=== PATIENT | female | born 1975 | race Caucasian/White ===

== ENCOUNTER → 2020-03-30 09:28 | Outpatient (BNVA) | payer OTHER, SELFPAY | PROVIDERS: PCP Internal Medicine; Visit Provider Dietitian, Registered | DX: Z76.89 Persons encountering health services in other specified circumstances (principal) ==

== ENCOUNTER → 2020-05-11 09:08 | Outpatient (BNVA) | payer OTHER, SELFPAY | PROVIDERS: PCP Internal Medicine; Visit Provider Dietitian, Registered | DX: Z76.89 Persons encountering health services in other specified circumstances (principal) ==

== ENCOUNTER → 2020-07-12 10:29 | Outpatient (BNVA) | payer OTHER, SELFPAY | PROVIDERS: PCP Internal Medicine; Visit Provider Dietitian, Registered ==

== ENCOUNTER → 2020-09-09 10:01 | Outpatient (BNVA) | payer OTHER, SELFPAY | PROVIDERS: PCP Internal Medicine; Visit Provider Dietitian, Registered | DX: E66.9 Obesity, unspecified (principal) | CPT/HCPCS: 97803 ==

== ENCOUNTER → 2021-04-07 10:30 | Outpatient (BNVA) | payer OTHER, SELFPAY | PROVIDERS: PCP Internal Medicine; Visit Provider Dietitian, Registered | DX: E66.9 Obesity, unspecified (principal); Z68.41 Body mass index [BMI] 40.0-44.9, adult | CPT/HCPCS: 97803 ==

== ENCOUNTER → 2021-07-13 12:30 | Outpatient (BNVA) | payer OTHER, SELFPAY | PROVIDERS: PCP Internal Medicine; Visit Provider Dietitian, Registered | DX: E66.9 Obesity, unspecified (principal); Z68.41 Body mass index [BMI] 40.0-44.9, adult; Z71.3 Dietary counseling and surveillance | CPT/HCPCS: 97803 ==

== ENCOUNTER → 2021-11-28 09:29 | Outpatient (BNVA) | payer OTHER, SELFPAY | PROVIDERS: PCP Internal Medicine; Visit Provider Dietitian, Registered | DX: E66.9 Obesity, unspecified (principal); Z68.41 Body mass index [BMI] 40.0-44.9, adult; Z71.3 Dietary counseling and surveillance | CPT/HCPCS: 97803 ==

== ENCOUNTER → 2022-02-28 09:39 | Outpatient (BNVA) | payer OTHER, SELFPAY | PROVIDERS: PCP Internal Medicine; Visit Provider Dietitian, Registered | DX: E66.9 Obesity, unspecified (principal); Z68.41 Body mass index [BMI] 40.0-44.9, adult; Z71.3 Dietary counseling and surveillance | CPT/HCPCS: 97803 ==

== ENCOUNTER → 2022-09-20 12:33 | Outpatient (BNVA) | payer OTHER, SELFPAY | PROVIDERS: PCP Internal Medicine; Visit Provider Dietitian, Registered | DX: E66.9 Obesity, unspecified (principal); Z68.41 Body mass index [BMI] 40.0-44.9, adult | CPT/HCPCS: 97803 ==

== ENCOUNTER 2023-01-08 11:22 | Outpatient (AMB) | payer OTHER, SELFPAY ==
--- NOTE | 2023-01-08 11:27 | A.OFFVIS_ITS ---
Intake VS Expanded 01/08/23 11:28 Height 5 ft 7 in Weight 272 lb 11.389 oz BMI 42.7 Intake Visit Reasons: obesity, wt check Allergies aspirin Allergy (Unknown, Uncoded 03/11/18 00:00) eggs Allergy (Unknown, Uncoded 03/11/18 00:00) food colorings red, 5, 10 Allergy (Unknown, Uncoded 03/11/18 00:00) latex Allergy (Unknown, Uncoded 03/11/18 00:00) pennicilin Allergy (Unknown, Uncoded 03/11/18 00:00) pineapple Allergy (Unknown, Uncoded 03/11/18 00:00) HPI Nutrition Presentation Details Pt presents for MNT for obesity Pt reports challenges with weight loss related to family gatherings/activities Pt reports physical activity:non additional to daily life activities (r/t pain from previous injuries)- followed by Most Recent Diabetes Results: No Data to Display Assessment & Plan Assessment & Plan (1) Obesity: Comment: BMI at 42.7 on (12/2022) 42.9 (09/20/22), 42.6 on 11/28/21 , 41 on 07/13/21 was at 42.3 in 03/2021 Code(s): E66.9 - Obesity, unspecified Plan: Educate Pt on 2000 christopher meal plan ? Used wt : 123 kg Est kcal as per MSJ: 2296-250 = 2046 (40% carb, 30% fat/prot) Est fluid needs: 3076 ml/d (25 ml/kg bw) Rec fiber: increase to 8-10 g per day and gradually increase to 25 g/d as tolerated Rec Na: < 2000 mg /d Educate patient on: (R= Reviewed, V = verbalizes understanding N/R= Needs review N/A= not applicable) * Food sources of carbohydrates and serving adequate serving sizes : V * Difference between complex carbohydrates and simple carbohydrates, role of fiber: V * Differences between fats (MUFA/PUFA/saturated fats, trans fats) and food sources of various fats: V * Food sources of sodium and salt and healthy modifications for heart health and kidney health: V * Vitamins and minerals: V * How to interpret food labels: V * Healthy Plate method concept: V * Physical activity: benefits and precaution: V Patient Instructions: Continue working on reducing fat intake (baking, broiling, steaming), reducing on pastries -keep food record- utilize food log winnie Coding Level of Care Code Nutr Indiv Subseq (09989) Diagnoses Obesity E66.9
[2023-01-08 11:28] VITALS: BMI 42.7
== END 2023-01-08 12:01 | disposition home or self-care (01) ==
PROVIDERS: PCP Internal Medicine; Visit Provider Dietitian, Registered
DX: E66.9 Obesity, unspecified (principal)

== ENCOUNTER → 2023-01-08 11:22 | Outpatient (BNVA) | payer OTHER, SELFPAY | PROVIDERS: Visit Provider Dietitian, Registered | DX: E66.9 Obesity, unspecified (principal); Z68.41 Body mass index [BMI] 40.0-44.9, adult; Z71.3 Dietary counseling and surveillance | CPT/HCPCS: 97803 ==

== ENCOUNTER 2023-07-16 11:22 | Outpatient (AMB) | payer OTHER, SELFPAY ==
--- NOTE | 2023-07-16 11:28 | A.OFFVIS_ITS ---
Intake VS Expanded 07/16/23 11:29 Height 5 ft 7 in Weight 267 lb 3.204 oz BMI 41.8 Intake Visit Reasons: Obesity/CONFIRMED Allergies aspirin Allergy (Unknown, Uncoded 03/11/18 00:00) eggs Allergy (Unknown, Uncoded 03/11/18 00:00) food colorings red, 5, 10 Allergy (Unknown, Uncoded 03/11/18 00:00) latex Allergy (Unknown, Uncoded 03/11/18 00:00) pennicilin Allergy (Unknown, Uncoded 03/11/18 00:00) pineapple Allergy (Unknown, Uncoded 03/11/18 00:00) HPI Nutrition Presentation Details Pt presents for MNT f /u for obesity Pt reports working on reduction of foods that may be related to kidney stones fluids/d 64 oz/day fruits: 2-3 serving/d dairy - 2serving/d ve-5 serving/d protein: poultry, beef, fish ,eggs, legumes starches: choosing whole grains fried foods: 1-2 x/wk desserts 1-2 x/wk Most Recent Diabetes Results: No Data to Display Assessment & Plan Assessment & Plan (1) Obesity: Comment: BMI 41.8 (06/2023), BMI at 42.7 on (12/2022) 42.9 (09/20/22), 42.6 on 11/28/21 , 41 on 07/13/21 was at 42.3 in 03/2021 Code(s): E66.9 - Obesity, unspecified Plan: Educate Pt on 2000 christopher meal plan ? Used wt : 123 kg (03/2023) 121 kg (06/2023) Est kcal as per MSJ: 2296-250 = 2045 (40% carb, 30% fat/prot) Est fluid needs: 3076 ml/d (25 ml/kg bw) Rec fiber: increase to 8-10 g per day and gradually increase to 25 g/d as tolerated Rec Na: < 2000 mg /d Educate patient on: (R= Reviewed, V = verbalizes understanding N/R= Needs review N/A= not applicable) * Food sources of carbohydrates and serving adequate serving sizes : V * Difference between complex carbohydrates and simple carbohydrates, role of fiber: V * Differences between fats (MUFA/PUFA/saturated fats, trans fats) and food sources of various fats: V * Food sources of sodium and salt and healthy modifications for heart health and kidney health: V * Vitamins and minerals: V * How to interpret food labels: V * Healthy Plate method concept: V * Physical activity: benefits and precaution: V Patient Instructions: Continue working on reduction, 500 calories less from empty calorie foods Keep hydrated by having water with lemon, citrus flavors goal > 64 oz of low sugar fluids/day Be cautious of high sodium content of foods/seasonings, aim at less than 2000 mg /d Coding Level of Care Code Nutr Indiv Subseq (95583) Diagnoses Obesity E66.9 Time Spent (min) 30
[2023-07-16 11:29] VITALS: BMI 41.8
== END 2023-07-16 12:06 | disposition home or self-care (01) ==
PROVIDERS: PCP Internal Medicine; Visit Provider Dietitian, Registered
DX: E66.9 Obesity, unspecified (principal)

== ENCOUNTER → 2023-07-16 11:22 | Outpatient (BNVA) | payer OTHER, SELFPAY | PROVIDERS: PCP Internal Medicine; Visit Provider Dietitian, Registered | DX: E66.9 Obesity, unspecified (principal); Z68.41 Body mass index [BMI] 40.0-44.9, adult | CPT/HCPCS: 97803 ==

== ENCOUNTER 2024-02-06 12:20 | Outpatient (AMB) | payer OTHER, SELFPAY ==
[2024-02-06 12:31] VITALS: BMI 43.3
--- NOTE | 2024-02-06 12:31 | A.OFFVIS_ITS ---
VS Expanded 02/06/24 12:31 Height 5 ft 7 in Weight 276 lb 3.827 oz BMI 43.3 Intake Visit Reasons: Obesity/CONFIRMED Allergies aspirin Allergy (Unknown, Uncoded 03/11/18 00:00) eggs Allergy (Unknown, Uncoded 03/11/18 00:00) food colorings red, 5, 10 Allergy (Unknown, Uncoded 03/11/18 00:00) latex Allergy (Unknown, Uncoded 03/11/18 00:00) pennicilin Allergy (Unknown, Uncoded 03/11/18 00:00) pineapple Allergy (Unknown, Uncoded 03/11/18 00:00) Nutrition Presentation Details: Pt presents for MNT f/u for obesity Pt reports dietary indiscretion related to vacation + choosing foods known to cause allergic reaction leading to increase inflammation. Pt verbalizes importance of resuming meal planning and reducing calories for weight loss. Pt expresses motivation to resume diet modificaitons. Reports starting to engage in physical activity , walking 1 hour 5 days a week BS Monitoring Most Recent Diabetes Results: No Data to Display Assessment & Plan Assessment & Plan (1) Obesity: Comment: BMI 41.8 (06/2023), today 02/17 at 43.3 Code(s): E66.9 - Obesity, unspecified Category: Medical Plan: Educate Pt on 2200 christopher meal plan ? Used wt : 123 kg (03/2023) 121 kg (06/2023), 125 kg ( 02/17) Est kcal as per MSJ: 2296 (40% carb, 30% fat/prot) Est fluid needs: 3076 ml/d (25 ml/kg bw) Rec fiber: increase to 8-10 g per day and gradually increase to 25 g/d as tolerated Rec Na: < 2000 mg /d Educate patient on: (R= Reviewed, V = verbalizes understanding N/R= Needs review N/A= not applicable) * Food sources of carbohydrates and serving adequate serving sizes : V * Difference between complex carbohydrates and simple carbohydrates, role of fiber: V * Differences between fats (MUFA/PUFA/saturated fats, trans fats) and food sources of various fats: V * Food sources of sodium and salt and healthy modifications for heart health and kidney health: V * Vitamins and minerals: V * How to interpret food labels: V * Healthy Plate method concept: V * Physical activity: benefits and precaution: V Patient Instructions: Resume working on meal planning, have 3 meals/day and 2 snack, following healthy plate method , use portioned plates , choose baked, broil, working n reducing on portion sizes and also amount of fats in the meals/snacks Choose water, no sugar added tea/beverages/infused water Coding Level of Care Code Nutr Indiv Subseq ([id number]) Diagnoses Obesity E66.9 Time Spent (min) 30
== END 2024-02-06 13:03 | disposition home or self-care (01) ==
PROVIDERS: PCP Internal Medicine; Visit Provider Dietitian, Registered
DX: E66.9 Obesity, unspecified (principal)

== ENCOUNTER → 2024-02-06 12:20 | Outpatient (BNVA) | payer OTHER, SELFPAY | PROVIDERS: PCP Internal Medicine; Visit Provider Dietitian, Registered | DX: E66.9 Obesity, unspecified (principal); Z68.41 Body mass index [BMI] 40.0-44.9, adult; Z71.3 Dietary counseling and surveillance | CPT/HCPCS: 97803 ==

== ENCOUNTER 2024-05-07 10:50 | Outpatient (AMB) | payer OTHER, SELFPAY ==
[2024-05-07 11:05] VITALS: BMI 43.4
--- NOTE | 2024-05-07 11:05 | A.OFFVIS_ITS ---
VS Expanded 05/07/24 11:05 Height 5 ft 7 in Weight 277 lb 5.464 oz BMI 43.4 Intake Visit Reasons: Obesity/Confirmed Allergies aspirin Allergy (Unknown, Uncoded 03/11/18 00:00) eggs Allergy (Unknown, Uncoded 03/11/18 00:00) food colorings red, 5, 10 Allergy (Unknown, Uncoded 03/11/18 00:00) latex Allergy (Unknown, Uncoded 03/11/18 00:00) pennicilin Allergy (Unknown, Uncoded 03/11/18 00:00) pineapple Allergy (Unknown, Uncoded 03/11/18 00:00) Medication List - Last Reconciled 05/07/[address], LDN chlorthalidone 25 mg PO DAILY levothyroxine (Synthroid) 112 mcg PO DAILY losartan 100 mg PO DAILY Nutrition Presentation Details: Pt presents for f/u for obesity Working on increasing fiber rich foods an reducing carbs Pt with hashimosto disease , was recently on prednisone r/t to upper respiratory infection BS Monitoring Most Recent Diabetes Results: No Data to Display Assessment & Plan Assessment & Plan (1) Obesity: Comment: BMI 41.8 (06/2023), today 02/17 at 43.3, 05/19 43.4 Code(s): E66.9 - Obesity, unspecified Category: Medical Plan: Educate Pt on 2200 christopher meal plan ? Used wt : 123 kg (03/2023) 121 kg (06/2023), 125 kg ( 02/17), 05/19 Est kcal as per MSJ: 2296 (40% carb, 30% fat/prot) Est fluid needs: 3076 ml/d (25 ml/kg bw) Rec fiber: increase to 8-10 g per day and gradually increase to 25 g/d as tolerated Rec Na: < 2000 mg /d Educate patient on: (R= Reviewed, V = verbalizes understanding N/R= Needs review N/A= not applicable) * Food sources of carbohydrates and serving adequate serving sizes : V * Difference between complex carbohydrates and simple carbohydrates, role of fiber: V * Differences between fats (MUFA/PUFA/saturated fats, trans fats) and food sources of various fats: V * Food sources of sodium and salt and healthy modifications for heart health and kidney health: V * Vitamins and minerals: V * How to interpret food labels: V * Healthy Plate method concept: V * Physical activity: benefits and precaution: V Patient Instructions: Continue working on including fiber rich foods and polyphenols ( seeds/lentils/legumes) Coding Level of Care Code Nutr Indiv Subseq ([id number]) Diagnoses Obesity E66.9 Time Spent (min) 20
== END 2024-05-07 11:30 | disposition home or self-care (01) ==
PROVIDERS: PCP Internal Medicine; Visit Provider Dietitian, Registered
DX: E66.9 Obesity, unspecified (principal)

== ENCOUNTER → 2024-05-07 10:50 | Outpatient (BNVA) | payer OTHER, SELFPAY | PROVIDERS: PCP Internal Medicine; Visit Provider Dietitian, Registered | DX: E66.9 Obesity, unspecified (principal); Z68.41 Body mass index [BMI] 40.0-44.9, adult | CPT/HCPCS: 97803 ==

== ENCOUNTER 2024-09-17 08:57 | Outpatient (AMB) | payer OTHER, SELFPAY ==
[2024-09-17 09:14] VITALS: BMI 42.8
--- NOTE | 2024-09-17 09:14 | A.OFFVIS_ITS ---
VS Expanded 09/17/24 09:14 Height 5 ft 7 in Weight 273 lb 5.971 oz BMI 42.8 Intake Visit Reasons: Obesity Allergies aspirin Allergy (Unknown, Uncoded 03/11/18 00:00) eggs Allergy (Unknown, Uncoded 03/11/18 00:00) food colorings red, 5, 10 Allergy (Unknown, Uncoded 03/11/18 00:00) latex Allergy (Unknown, Uncoded 03/11/18 00:00) pennicilin Allergy (Unknown, Uncoded 03/11/18 00:00) pineapple Allergy (Unknown, Uncoded 03/11/18 00:00) Medication List - Last Reconciled 09/17/[address], LDN albuterol sulfate 90 mcg/actuation (Ventolin HFA) 2 puffs inhalation Q6H PRN chlorthalidone 25 mg PO DAILY levothyroxine (Synthroid) 112 mcg PO DAILY losartan 100 mg PO DAILY pantoprazole (Protonix) 20 mg PO DAILY Nutrition Presentation Details: Pt presents for MNT for obesity Pt reports working on diet modifications due to food sensitivities, reports sensitivity to gluten Working on reducing gluten containing foods Pt report challenges with meals d/t increased nausea and stomach pain , Pt reports having ongoing tests and reports having pending MRI tomorrow due to ongoing stomach pain , and question possible MALS food frequency fruits: 1-2/d dairy: 2/d fried foods -denies fluids: 36 oz/d BS Monitoring Most Recent Diabetes Results: No Data to Display [facility] Medical History (Updated 09/17/24 @ 09:[address], LDN) Gestational diabetes mellitus Assessment & Plan Assessment & Plan (1) Obesity: Comment: BMI 41.8 (06/2023), today 02/17 at 43.3, 05/19 43.4, 09/18 42.8 Code(s): E66.9 - Obesity, unspecified Category: Medical Plan: Educate Pt on 2200 christopher meal plan ? Used wt : 123 kg (03/2023) 121 kg (06/2023), 125 kg ( 02/17), 05/19, 09/18 Est kcal as per MSJ: 2296 (40% carb, 30% fat/prot) Est fluid needs: 3700 ml/d (30 ml/kg bw) Rec fiber: increase to 8-10 g per day and gradually increase to 25 g/d as tolerated Rec Na: < 2000 mg /d Educate patient on: (R= Reviewed, V = verbalizes understanding N/R= Needs review N/A= not applicable) * Food sources of carbohydrates and serving adequate serving sizes : V * Difference between complex carbohydrates and simple carbohydrates, role of fiber: V * Differences between fats (MUFA/PUFA/saturated fats, trans fats) and food sources of various fats: V * Food sources of sodium and salt and healthy modifications for heart health and kidney health: V * Vitamins and minerals: V * How to interpret food labels: V * Healthy Plate method concept: V * Physical activity: benefits and precaution: V Patient Instructions: Continue working on choosing low small portion , chew foods well prior to swallowing try lemon, willie/mint to relieve symptoms of nauseao Coding Level of Care Code Nutr Indiv Subseq (97008) Diagnoses Obesity E66.9 Time Spent (min) 20
--- OUTSIDE RECORDS SUMMARY | 2024-09-17 09:36 | XMS_ITS | Clinical Summary ---
Author Organization [facility] Address [address] [place] [phone] Phone Care Team Providers Care Apprentice Jockey Name Role Phone Troy Nicolas MD Primary Care Provider [phone] Allergies Active Allergy Reactions Criticality Noted Date Comments Aspirin Anaphylaxis High 07/01/2018 Egg 02/22/2022 Egg containing compound Ibuprofen Anaphylaxis High 07/01/2018 Iodine 01/26/2020 Latex 07/01/2018 Other Reaction(s): Rash/Dermatitis And skin loss on contact Other 02/09/2020 Dermabond skin glue- causes rash, skin irritation reaction anaphylactic shock Penicillin G Anaphylaxis High 07/01/2018 Pineapple 02/22/2022 Povidone-Iodine 02/22/2022 Other reaction(s): Rash Propantheline 02/22/2022 Sulfadiazine 02/22/2022 Other reaction(s): Hives Medications nystatin (MYCOSTATIN) 100,000 unit/gram powder Apply 1 gram to affected area three times per day as needed. 03/10/20 24 Active nystatin (MYCOSTATIN) cream Apply to affected area daily as needed. 03/10/20 24 025 Active pantoprazole (PROTONIX) 40 mg EC tablet TAKE 1 TABLET BY MOUTH TWICE DAILY 08/20/19 24 Active losartan (COZAAR) 25 mg tablet Take 25 mg by mouth daily. 01/25/20 22 Active EPINEPHrine (EpiPen 2-Javi) 0.3 mg/0.3 mL injection INJECT 1 PEN INTO MUSCLE NEEDED FOR ANAPHYLAXIS REACTION 01/24/20 22 Active diclofenac (VOLTAREN) 1 % topical gel apply 2 Gm Topically 4 times a day as needed for Moderate pain 01/24/20 22 Active albuterol HFA (PROAIR HFA ; PROVENTIL HFA ; VENTOLIN HFA) 90 mcg/actuation inhaler Inhale into the lungs. 10/16/19 20 Active chlorthalidone (HYGROTON) 25 mg tablet Take 25 mg by mouth daily. 05/17/20 21 Active levothyroxine (SYNTHROID, LEVOTHROID) 112 mcg tablet TAKE 1 TABLET BY MOUTH ONCE EVERY DAY 12/22/19 21 Active potassium chloride 20 mEq tablet extended release Take 1 Tablet by mouth daily. 08/22/19 24 025 Discontinued azithromycin (ZITHROMAX) 250 mg tablet Take by mouth. 07/27/19 21 025 Discontinued indapamide (LOZOL) 1.25 mg tablet TK 1 T PO QD 02/09/20 20 025 Discontinued levothyroxine sodium (SYNTHROID ORAL) Take by mouth. 025 Discontinued Active Problems Problem Noted Date Diagnosed Date Hypertension 09/08/2024 At high risk for breast cancer 09/08/2024 Intertrigo 02/22/2020 Macromastia 02/22/2020 Breast pain 01/26/2020 Fibroadenoma of breast, left 01/24/2020 Overview (05/07/2024): 9:00, areola. Biopsy on 02/03/20. Atrial fibrillation (CMS/HCC V24, CMS/HCC V28) 0 01/27/2019 Overview (05/07/2024): Occurred when w/2nd child-resolved after giving Hypothyroidism 01/27/2019 Old MD (myocardial infarction) 01/27/2019 Overview (05/07/2024): At age 15 and 31 (during ) Resolved Problems Problem Noted Date Diagnosed Date Resolved Date Neck pain 02/22/2020 09/08/2024 Encounters Date Type Department Care Team Description 09/08/2024 9:00 AM EDT Office Visit [facility] [address] [place] [phone] Preet Leyva MD At high risk for breast cancer (Primary Dx); Family history of breast cancer from Last 3 Months Surgical History Surgery Date Site/Laterality Comments HYSTERECTOMY 2016 PROCEDURE: HISTORICAL HYSTERECTOMY; COMMENT: for endometriosis; ovaries remian OTHER SURGICAL HISTORY 05/2014 PROCEDURE: HISTORY OTHER; COMMENT: urethroscopy w/stent placement for kidney stones Medical History Medical History Date Comments History of kidney stones DX:Hist ory of kidney stones Hypothyroidism 01/27/2019 DX:Hypothyroidis m Atrial fibrillation (CMS/HCC V24, CMS/HCC V28) 01/27/2019 DX:Atrial fibrillation (HCC) ; COMMENT: Occurred when w/2nd child-resolved after giving At risk for breast cancer 01/27/2019 DX:At risk for breast cancer; COMMENT: Lifetime risk 21.8%; 11/2017 BRCA testing negative; maternal aunt w/Breast Cancer at 34 Old MD (myocardial infarction) 01/27/2019 D X:Old MD (myocardial infarction); COMMENT: At age 15 and 31 (during ) Hypertension 09/08/2024 Family History Medical History Relation Name Comments Prostate cancer Maternal Grandfather Breast cancer Mother's Sister 1 Lymphoma Mother's Sister 2 maternal great aunt Relation Name Status Comments Maternal Grandfather at age 65 at [facility] Mother's Sister 1 Alive at age 34 Mother's Sister 2 maternal great aunt at age 65 Social History Tobacco Use Types Packs/Day Years Used Date Smoking Tobacco: Never Smokeless Tobacco: Never Comments Unknown Sex and Gender Information Value Date Recorded Sex Assigned at Not on file Legal Sex Female 1:25 AM EST Gender Identity Not on file Sexual Orientation Not on file Obstetrics History Last Filed Vital Signs Vital Sign Reading Time Taken Comments Blood Pressure 135/82 09/08/2024 8:43 AM EDT Pulse 73 09/08/2024 8:43 AM EDT Temperature 36.9 ??C (98.4 ??F) 09/08/2024 8:43 AM ED T Respiratory Rate - - Oxygen Saturation - - Inhaled Oxygen Concentration - - Weight 126 kg (278 lb) 09/08/2024 8:43 AM EDT Height 172.7 cm (5' 8 ) 02/22/2022 2:37 PM EDT Body Mass Index 42.27 02/22/2022 2:37 PM EDT Plan of Treatment Upcoming Encounters Date Type Department Care Team (Late st Contact Info) Description 03/11/2025 9:20 AM EDT Office Visit [facility] [place] [address] [place] [phone] Preet Leyav MD [address] [place] [address] Health Maintenance Due Date Last Done Comments Hepatitis B Vaccines (1 of 3 - 19+ 3-dose series) 1996 Pneumococcal Vaccine: Pediatrics (0 to 5 Years) and At-Risk Patients (6 to 64 Years) (1 of 2 - PCV) 1996 Cervical Cancer Screening: Pap Smear 1998 COVID-19 Vaccine (3 - Pfizer risk series) 03/22/2021 02/22/2021, 02/01/2021 Cholesterol Screening (Lipid Panel) 05/05/2022 Colorectal Cancer Screening: Colonoscopy 05/05/2022 Depression Screening 05/05/2022 HIV Screening 05/05/2022 Hepatitis C Screening 05/05/2022 Social Influencers of Health Screening 05/05/2022 DTaP,Tdap,and Td Vaccines (4 - Td or Tdap) 01/13/2024 01/12/2014, 07/16/2012, 04/26/2011 Influenza Vaccine (Season Ended) 2025 Hypertension/CHF/CAD Annual BMP Blood Test 03/27/2025 03/27/2024 Breast Cancer Screening 02/16/2026 02/17/20 24, 02/11/2023, 02/01/2022, Additional history exists Hepatitis A Vaccines Completed 09/14/2021, 03/17/20 21 HIB Vaccines Aged Out No longer eligi ble based on patient's age to complete this topic HPV Vaccines Aged Out No longer eligi ble based on patient's age to complete this topic IPV Vaccines Aged Out No longer eligi ble based on patient's age to complete this topic MMR Vaccines Aged Out No longer eligi ble based on patient's age to complete this topic Meningococcal ACWY Vaccine Aged Out N o longer eligible based on patient's age to complete this topic Meningococcal B Vaccine Aged Out No l onger eligible based on patient's age to complete this topic RSV Immunization Patients Under 20 months Aged Out No longer eligible based on patient's age to complete this topic Varicella Vaccines Aged Out No longer eligible based on patient's age to complete this topic Procedures Procedure Name Priority Date/Time Associated Diagnosis Comments [facility] SCREENING DIGITAL Routine 02/17/2024 8:39 AM EDT Encounter for screening mammogram for malignant neoplasm of breast from Last 3 Months or Most Recently Relevant to Health Maintenance Results * [facility] SCREENING DIGITAL (02/17/2024 8:39 AM EDT) Anatomical Region Laterality Modality Mammography 02/13/2024 1:19 PM EDT Narrative 02/17/2024 8:39 AM EDT [facility] Diagnostic Imaging Department [address] [place] [address] Patient: ??MONSELAINA Whitmore ?/Age/Sex: 1975 - 48 - F Unit#: ??[id number] ? Location/Status: ??SPDIMAM/REG CLI ? Mnemonic/Ordering Site: ??DIGSC/SPMAM Ordering Physician: ??PREET LEYVA MD [facility] Screening Digital - 02/15/24807 Report Status:Signed EXAM: [facility] Screening Digital EXAM DATE AND TIME: 02/15/2024 8:09 AM HISTORY: ??Screening. Excisional biopsy of the left breast in 2019 (fibroadenoma). Family history of breast carcinoma. COMPARISON: ??02/09/23, 02/01/22, 01/21/21, 01/18/20 TECHNIQUE: Bilateral digital breast tomosynthesis was performed in the CC and MLO projections. Computer aided detection with eMithilaHaatD Story of My Life 3D 3.1 was employed. TISSUE DENSITY: b. There are scattered areas of fibroglandular density. FINDINGS: No suspicious masses, grouped microcalcifications, or areas of architectural distortion are seen. Skin calcifications are again seen. The vascularity is unremarkable. IMPRESSION: Stable mammographic appearance of the breasts. ??No evidence of malignancy is seen. A negative mammogram in the presence of a clinically suspicious palpable abnormality does not preclude the possibility of malignancy or alter the indications for biopsy. BI-RADS: ??Category 2: Benign RECOMMENDATION(S): 1: Routine screening mammogram BILATERAL in 1 year. Mammogram performed at [facility] [place] [address] Dictating Physician: ??FATOU PORRAS MD Electronically Signed by: ??FATOU PORRAS MD Dic Date/Time: ??02/17/24 0838 Sign date/Time: ??02/17/24 0839 Procedure Note Fatou Porras MD - 03/11/2024 [facility] Diagnostic Imaging Department [address] [place] [address] Patient: JOSESHERRIELAINA /Age/Sex: 1975 - 48 - F Unit#: [id number] Location/Status: [facility]/REG CLI Mnemonic/Ordering Site: [facility] Ordering Physician: PREET LEYVA MD [facility] Screening Digital - 02/15/24 - 0808 Report Status:Signed EXAM: [facility] Screening Digital EXAM DATE AND TIME: 02/15/2024 8:09 AM HISTORY: Screening. Excisional biopsy of the left breast in 2019 (fibroadenoma). Family history of breast carcinoma. COMPARISON: 02/09/23, 02/01/22, 01/21/21, 01/18/20 TECHNIQUE: Bilateral digital breast tomosynthesis was performed in the CCand MLO projections. Computer aided detection with iPAYst 3D 3.1was employed. TISSUE DENSITY: b. There are scattered areas of fibroglandular density. FINDINGS: No suspicious masses, grouped microcalcifications, or areas ofarchitectural distortion are seen. Skin calcifications are again seen. The vascularityis unremarkable. IMPRESSION: Stable mammographic appearance of the breasts. No evidence of malignancyis seen. A negative mammogram in the presence of a clinically suspicious palpable abnormality does not preclude the possibility of malignancy or alter the indications for biopsy. BI-RADS: Category 2: Benign RECOMMENDATION(S): 1: Routine screening mammogram BILATERAL in 1 year. Mammogram performed at [place] [address] Dictating Physician: FATOU PORRAS MD Electronically Signed by: FATOU PORRAS MD Dic Date/Time: 02/17/24837 Sign date/Time: 02/17/24838 Preet Leyva MD IMG BI PROCEDURES Final Result from Last 3 Months or Most Recently Relevant to Health Maintenance Insurance MEDICA[place] Care Teams Apprentice Jockey Relationship Specialty Start Date End Date Troy Nicolas MD [address] [place] [address] PCP - General Internal Medicine 09/30/12
== END 2024-09-17 09:44 | disposition home or self-care (01) ==
LOC: HO.ENCR 08:58
PROVIDERS: PCP Internal Medicine; Visit Provider Dietitian, Registered
DX: E66.9 Obesity, unspecified (principal)

== ENCOUNTER → 2024-09-17 08:57 | Outpatient (BNVA) | payer OTHER, SELFPAY | PROVIDERS: PCP Internal Medicine; Visit Provider Dietitian, Registered | DX: E66.9 Obesity, unspecified (principal); Z68.41 Body mass index [BMI] 40.0-44.9, adult | CPT/HCPCS: 97803 ==

== ENCOUNTER 2025-03-18 09:29 | Outpatient (AMB) | payer OTHER, SELFPAY ==
--- NOTE | 2025-03-18 09:32 | A.OFFVIS_ITS ---
VS Expanded 03/18/25 09:33 03/23/25 21:53 Height 5 ft 7 in 5 ft 7 in Weight 276 lb 0.3 oz 276 lb BMI 43.2 43.2 Intake Visit Reasons: obesity Allergies aspirin Allergy (Unknown, Uncoded 03/11/18 00:00) eggs Allergy (Unknown, Uncoded 03/11/18 00:00) food colorings red, 5, 10 Allergy (Unknown, Uncoded 03/11/18 00:00) latex Allergy (Unknown, Uncoded 03/11/18 00:00) pennicilin Allergy (Unknown, Uncoded 03/11/18 00:00) pineapple Allergy (Unknown, Uncoded 03/11/18 00:00) Nutrition Presentation Details: Pt presents for MNT for obesity Pt reports she was advised by MD to follow gluten free diet (related to increased inflammation) Reports 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 Used wt : 123 kg (03/2023) 121 kg (06/2023), 125 kg ( 02/17), 05/19, 09/18, 03/20 Est kcal as per MSJ: 2296 (40% carb, 30% fat/prot) Est fluid needs: 3700 ml/d (30 ml/kg bw) Rec fiber: increase to 8-10 g per day and gradually increase to 25 g/d as tolerated Rec Na: < 2000 mg /d Educate patient on: (R= Reviewed, V = verbalizes understanding N/R= Needs review N/A= not applicable) * Food sources of carbohydrates and serving adequate serving sizes : V * Difference between complex carbohydrates and simple carbohydrates, role of fiber: V * Differences between fats (MUFA/PUFA/saturated fats, trans fats) and food sources of various fats: V * Food sources of sodium and salt and healthy modifications for heart health and kidney health: V * Vitamins and minerals: V * How to interpret food labels: V * Healthy Plate method concept: V * Physical activity: benefits and precaution: V Patient Instructions: -work on relaxation technique, - have one meal replacement a day -reduce added sugar (from beverages, desserts) Coding Level of Care Code Nutr Indiv Subseq (01923) Diagnoses Obesity E66.9 Time Spent (min) 20
[2025-03-18 09:33] VITALS: BMI 43.2
--- OUTSIDE RECORDS SUMMARY | 2025-03-18 10:39 | XMS_ITS | Clinical Summary ---
Author Organization [facility] Address [address] [place] [address] Phone Care Team Providers Care Sustainable Systems Analyst Name Role Phone Rubina Canada MD Primary Care Provider [phone] Allergies Active Allergy Reactions Criticality Noted Date [...] area three times per day as needed. 4 Active pantoprazole (PROTONIX) 40 mg EC tablet TAKE 1 TABLET BY MOUTH TWICE DAILY 4 Active losartan (COZAAR) 25 mg tablet Take 25 mg by mouth daily. 2 Active EPINEPHrine (EpiPen 2-Javi) 0.3 mg/0.3 mL injection INJECT 1 PEN INTO MUSCLE NEEDED FOR ANAPHYLAXIS REACTION 2 Active diclofenac (VOLTAREN) 1 % topical gel apply 2 Gm Topically 4 times a day as needed for Moderate pain 2 Active albuterol HFA (PROAIR HFA ; PROVENTIL HFA ; VENTOLIN HFA) 90 mcg/actuation inhaler Inhale into the lungs. 0 Active chlorthalidone (HYGROTON) 25 mg tablet Take 25 mg by mouth daily. 1 Active levothyroxine (SYNTHROID, LEVOTHROID) 112 mcg tablet TAKE 1 TABLET BY MOUTH ONCE EVERY DAY 1 Active nystatin (MYCOSTATIN) cream Apply to affected area daily as needed. 4 03/05/20 25 Active Problems Problem Noted Date Diagnosed Date [...] Encounters Date Type Department Care Team Description 02/23/2025 Results [facility] [address] [phone] Gillian Leyva MD 02/20/2025 7:48 AM EDT - 02/20/2025 11:59 PM EDT Hospital [facility] at [address] [phone] At high risk for breast cancer; Family history of breast cancer Discharge Disposition: Home or Self Care from Last 3 Months Surgical History Surgery Date Site/Laterality Comments HYSTERECTOMY 2016 PROCEDURE: HISTORICAL HYSTERECTOMY; COMMENT: for endometriosis; ovaries remian OTHER SURGICAL HISTORY 05/2014 PROCEDURE: HISTORY OTHER; COMMENT: urethroscopy w/stent placement for kidney stones STEREOTACTIC CORE BIOPSY Left Medical History Medical History Date Comments History [...] Comments Maternal Grandfather at age 65 at [facility]ase Mother's Sister 1 Alive at age 34 Mother's Sister 2 maternal great aunt at age 65 Social History Tobacco Use Types Packs/Day Years Used Date Smoking Tobacco: Never Smokeless Tobacco: Never Comments No Sex and Gender Information Value Date Recorded Sex Assigned at Not on file Legal Sex Female 1:25 AM EST Gender Identity Not on file Sexual Orientation Not on file Obstetrics History Para Term AB IAB SAB Ectopic Multiple Livin g Live Births 3 Last Filed Vital Signs Vital Sign Reading Time Taken Comments Blood Pressure 152/100 12/08/2024 3:48 PM EDT Pulse 92 12/08/2024 3:48 PM EDT Temperature 35.8 C (96.4 F) 12/08/2024 3:48 PM EDT Respiratory Rate - - Oxygen Saturation - - Inhaled Oxygen Concentration - - Weight 125 kg (275 lb) 02/20/2025 7:56 AM EDT Height 175.3 cm (5' 9 ) 02/20/2025 7:56 AM EDT Body Mass Index 40.61 02/20/2025 7:56 AM EDT Plan of Treatment Upcoming Encounters Date Type Department Care Team (Late Contact Info) Description 06/15/2025 9:40 AM EST Office Visit Breast [facility] [address] [place] [phone] Gillian Leyva MD [address] [place] [address] Health Maintenance Due Date Last Done Comments Colorectal Cancer Screening: Colonoscopy 1977 Hepatitis B Vaccines (1 of 3 - 19+ 3-dose series) 1996 Pneumococcal Vaccine: Pediatrics (0 to 5 Years) and At-Risk Patients (6 to 49 Years) (1 of 2 - PCV) 1996 Cervical Cancer Screening: Pap Smear 1998 COVID-19 Vaccine (3 - Pfizer risk series) 03/22/2021 02/22/2021, 02/01/2021 Cholesterol Screening (Lipid Panel) 05/05/2022 HIV Screening 05/05/2022 Hepatitis C Screening 05/05/2022 Social Influencers of Health Screening 05/05/2022 DTaP,Tdap,and Td Vaccines (4 - Td or Tdap) 01/13/2024 01/12/2014, 07/16/2012, 04/26/2011 Depression Screening 05/27/2024 Influenza Vaccine (#1) 2025 Hypertension/CHF/CAD Annual BMP Blood Test 03/27/2025 03/27/2024 Breast Cancer Screening 02/20/2027 02/21/20 25, 02/17/2024, 02/11/2023, Additional history exists RSV Immunization Adult Patients (1 - 1-dose 75+ series) 2052 Hepatitis A Vaccines Completed 09/14/2021, 03/17/20 21 [...] Procedure Name Priority Date/Time Associated Diagnosis Comments MG MAMMO DIGITAL SCREENING W KIMBERLY BILAT Routine 02/20/2025 8:11 AM EDT At high risk for breast cancer Family history of breast cancer from Last 3 Months Results * MG Mammo Digital Screening w Kimberly bilat (02/20/2025 8:11 AM EDT) Anatomical Region Laterality Modality Breast Bilateral Mammography 02/22/2025 7:40 AM EDT Impressions 02/22/2025 7:57 AM EDT No mammographic evidence of malignancy. No suspicious interval change. A negative mammogram in the presence of a clinically suspicious palpable abnormality does not preclude the possibility of malignancy or alter the indications for biopsy. ASSESSMENT: BI-RADS 2: BENIGN RECOMMENDATION(S): 1: Routine screening mammogram BILATERAL in 1 year. [facility] at [address], [address] -------- FINAL REPORT -------- Dictated By: Leo Solo Dictated Date: 02/22/2025 07:40 ET Assigned Physician: Leo Solo Reviewed and Electronically Signed By: Leo Solo Signed Date: 02/22/2025 07:57 ET Workstation ID: [id number] Transcribed By: Self Edit Transcribed Date: 02/22/2025 07:40 ET Narrative 02/22/2025 7:57 AM EDT EXAM: SCREENING MAMMOGRAPHY, BILATERAL HISTORY: SCREENING. The estimated lifetime risk of developing breast cancer is greater than 20%. Maternal aunt diagnosed with breast cancer age 34. Previous reports indicate excision left breast yielding fibroadenoma. COMPARISON: 12/14/24, 09/18/24, 02/15/24, 02/09/23, 02/01/22, 01/21/21 TECHNIQUE: Synthesized CC and MLO projections of each breast. Tomosynthesis of each breast in the CC and MLO projections. ADDITIONAL IMAGING: Craniocaudal view of the right breast exaggerated toward the axilla using Tomosynthesis. Computer-aided detection was employed with the My 1% AI 3-D. TISSUE DENSITY: There are scattered areas of fibroglandular density. (BI-RADS category B) FINDINGS: There is a scar marker present in the anterior central left breast on 01/21/21. RIGHT BREAST: No suspicious mass. No suspicious calcification. No distortion. No additional suspicious right breast findings LEFT BREAST: Findings consistent with prior excision. No additional suspicious left breast findings Procedure Note Leo Solo MD - 02/22/2025 EXAM: SCREENING MAMMOGRAPHY, BILATERAL HISTORY: SCREENING. The estimated lifetime risk of developing breastcancer is greater than 20%. Maternal aunt diagnosed with breast cancerage 34. Previous reports indicate excision left breast yielding fibroadenoma. COMPARISON: 12/14/24, 09/18/24, 02/15/24, 02/09/23, 02/01/22, 01/21/21 TECHNIQUE: Synthesized CC and MLO projections of each breast.Tomosynthesis of each breast in the CC and MLO projections. ADDITIONAL IMAGING: Craniocaudal view of the right breast exaggeratedtoward the axilla using Tomosynthesis. Computer-aided detection was employed with the My 1% AI 3-D. TISSUE DENSITY: There are scattered areas of fibroglandular density.(BI-RADS category B) FINDINGS: There is a scar marker present in the anterior central left breast on01/21/21. RIGHT BREAST: No suspicious mass. No suspicious calcification. No distortion. Noadditional suspicious right breast findings LEFT BREAST: Findings consistent with prior excision. No additional suspicious leftbreast findings IMPRESSION: No mammographic evidence of malignancy. No suspicious interval change. A negative mammogram in the presence of a clinically suspicious palpableabnormality does not preclude the possibility of malignancy or alter theindications for biopsy. ASSESSMENT: BI-RADS 2: BENIGN RECOMMENDATION(S): 1: Routine screening mammogram BILATERAL in 1 year. [facility] at [address], [address] -------- FINAL REPORT -------- Dictated By: Leo Solo Dictated Date: 02/22/2025 07:40 ET Assigned Physician: Leo Solo Reviewed and Electronically Signed By: Leo Solo Signed Date: 02/22/2025 07:57 ET Workstation ID: [id number] Transcribed By: Self Edit Transcribed Date: 02/22/2025 07:40 ET Gillian Leyva MD IMG BI PROCEDURES Final Result from Last 3 Months Insurance [place]ID - [place] Member Subscriber Plan / Payer (Ef fective 2024-Present) Name:LAINA SHEA Relation to Subscriber:Self Name:Laina Shea Payer ID:[id number] Group ID:Not on file Type:Not on file Address: [facility] [employer] ATTN:CLAIMS [address] [place] [phone] [place] [address] [address] [place] [address] Care Teams Sustainable Systems Analyst Relationship Specialty Start Date End Date Rubina Canada MD [address] [place] [phone] PCP - General Internal Medicine 02/19/25
--- OUTSIDE RECORDS SUMMARY | 2025-03-18 10:39 | XMS_ITS | Encounter Summary ---
Author Organization [facility] Address [address] [place] [address] Care Team Providers Care Robotic Welder Name Role Phone Rubina Canada MD Primary Care Provider [phone] Encounter Details Date Type Department Care Team (Late Contact Info) Description 02/23/2025 Results Follow-Up Breast [address] [phone] Gillian Leyva MD [address] [place] [phone] Social History Tobacco Use Types Packs/Day Years Used Date Smoking Tobacco: Never Smokeless Tobacco: Never Comments No Sex and Gender Information Value Date Recorded Sex Assigned at Not on file Legal Sex Female 1:25 AM EST Gender Identity Not on file Sexual Orientation Not on file documented as of this encounter Plan of Treatment Upcoming Encounters Date Type Department Care Team (Late Contact Info) Description 06/15/2025 9:40 AM EST Office Visit Breast [address] [phone] Gillian Leyva MD [address] [place] [address] documented as of this encounter Visit Diagnoses Not on filedocumented in this encounter Care Teams Robotic Welder Relationship Specialty Start Date End Date Rubina Canada MD [address] [place] [address] PCP - General Internal Medicine 02/19/25 documented as of this encounter
--- OUTSIDE RECORDS SUMMARY | 2025-03-18 10:39 | XMS_ITS | Encounter Summary ---
Author Organization [facility] Address [address] [place] [address] Care Team Providers Care Car Inspection And Repair Manager Name Role Phone uRbina Canada MD Primary Care Provider [phone] Encounter Details Date Type Department Care Team (Late Contact Info) Description 11/06/2024 Lab Requisition [facility] [address] [facility] [place] [phone] Jose Wise, PA [address] [place] [address] Urinary tract infection, site not specified Social History Tobacco Use Types Packs/Day Years [...] Care Team (Late st Contact Info) Description 06/15/2025 9:40 AM EST Office Visit Breast Care [facility] [address] [place] [phone] Gillian Leyva MD [address] [place] [address] documented as of this encounter Procedures Procedure Name Priority Date/Time Associated Diagnosis Comments CULTURE URINE Routine 11/06/2024 12:00 AM EDT Urinary tract infection, site not specified documented in this encounter Results * Culture urine (11/06/2024 12:00 AM EDT) Culture, Urine <10,000 CFU/mL gram negative bacilli, insignificant count, no further workup 11/07/2024 1:38 PM EDT [facility] Urine Urine specimen obtained by clean catch procedure / Unknown 11/06/2024 11/06/2024 5:52 PM EDT [facility] MICROBIOLOGY - GENERAL TIFFANIE LO Final Result [facility] [address] [place] [address], documented in this encounter Visit Diagnoses Diagnosis Urinary tract infection, site not specified documented in this encounter Care Teams Car Inspection And Repair Manager Relationship Specialty Start Date End Date Rubina Canada MD [address] [place] [address] PCP - General Internal Medicine 02/19/25 documented as of this encounter
--- OUTSIDE RECORDS SUMMARY | 2025-03-18 10:40 | XMS_ITS | Clinical Summary ---
Author Organization [facility] Address [address] [place] [phone] Phone Care Team Providers Care Sander Operator Name Role Phone Troy Nicolas MD Primary Care Provider + Allergies Active Allergy Reactions Criticality Noted Date Comments Aspirin Anaphylaxis High 03/11/2023 Egg 03/11/2023 Latex 03/11/2023 reaction anaphylactic shock Mushroom Hives 03/11/2023 Penicillin Anaphylaxis High 03/11/2023 Pineapple Anaphylaxis High 03/11/2023 Povidone-Iodine Rash Low 03/11/2023 Propantheline 03/11/2023 Propylene Glycol Anaphylaxis High 03/11/2023 Sulfa (Sulfonamide Antibiotics) 03/11/2023 Yellow Dye Anaphylaxis High 03/11/2023 Medications albuterol sulfate (PROAIR RESPICLICK) 90 mcg/actuation AePB Inhale into the lungs. 06/04/2022 Active chlorthalidone (HYGROTON) 25 MG tablet Take 1 tablet by mouth every other day. 02/16/2023 Active EPINEPHrine 0.15 mg/0.15 mL auto-injector Active losartan (COZAAR) 100 MG tablet Take 100 mg by mouth daily. 03/14/2024 Active pantoprazole (PROTONIX) 20 MG tablet Take 20 mg by mouth 2 (two) times a day. Active budesonide-formo terol 80-4.5 mcg/actuation inhaler Inhale 2 puffs into the lungs 2 (two) times a day. Active levothyroxine (SYNTHROID, LEVOTHROID) 125 MCG tablet Take 1 tablet (125 mcg total) by mouth every morning. 90 tablet 1 11/10/2024 Active Active Problems Problem Noted Date Diagnosed Date Prediabetes 11/12/2024 Assessment & Plan (11/12/2024 12:16 PM EDT): A1c was in the prediabetes range at 6.1 in 02/2024. Patient is well aware of the increased risk of type 2 diabetes with her history of gestational diabetes, prediabetes and family history of type 2 diabetes. Encouraged to continue to work on regular exercise which she started about 2 months ago and continue to cut back on portions by at least 500 christopher/day in order to lose a pound a week Monitor A1c or fasting glucose yearly or as clinically indicated Parotid gland pain 11/12/2024 Assessment & Plan (11/12/2024 12:20 PM EDT): On thyroid exam today patient reported slight tenderness in the lower part of the left parotid gland. She mentioned that the pain started with swelling about 2 weeks ago, the swelling went down and the pain improved. It is possible that she passed a salivary stone. May see ENT if not better Acquired hypothyroidism 03/24/2023 Assessment & Plan (11/12/2024 12:10 PM EDT): Clinically euthyroid. Last TSH is slightly elevated at 5.96 with normal free T4 on 11/05/2024 while taking 112 mcg levothyroxine daily appropriately. She is disappointed that despite walking regularly and eating healthier within the last 2 months she has not lost weight. -Increase levothyroxine to 125 mcg daily. May use up the 112 mcg tablets by taking 8 tablets/week 128 mcg daily average dose. -Repeat TSH in 2 months. -Reviewed symptoms of under and over replacement, patient to call if concerned Assessment & Plan (03/24/2023 2:11 PM EDT): Longstanding primary hypothyroidism treated with levothyroxine. Patient is clinically and biochemically euthyroid. Last TSH 2.61 on 12/15/2022 while taking 112 mcg levothyroxine daily. She lost 6 pounds intentionally more recently. We decided to recheck her TSH soon. We will discuss results through [place]. Reviewed appropriate administration of levothyroxine and symptoms of under and over replacement. History of gestational diabetes 03/24/2023 Assessment & Plan (03/24/2023 2:12 PM EDT): Patient aware that the family history of type 2 diabetes as well as her history of gestational diabetes increase her risk to develop type 2 diabetes. Encouraged her to continue to work on healthy meal plan and regular exercise to facilitate weight loss and decrease the risk of progression to type 2 diabetes. No recent screening test for diabetes is available, I added A1c to next labs. Social History Tobacco Use Types Packs/Day Years Used Date Smoking Tobacco: Never Smokeless Tobacco: Never Alcohol Use Standard Drinks/Week Comments Yes 3 (1 standard drink = 0.6 oz pur e alcohol) social only Education Answer Date Recorded Are you interested in more education? Not on kevin e 10/19/2022 Are you concerned about learning? Not on file 10/19/2022 No 10/19/2022 No 10/19/2022 Digital Access Answer Date Recorded No 10/19/2022 No 10/19/2022 Reliable internet access at home? Not on file 10/19/2022 Device with a working camera? Not on file Comments Unknown Sex and Gender Information Value Date Recorded Sex Assigned at Not on file Legal Sex Female 9:16 AM EDT Gender Identity Not on file Sexual Orientation Not on file Last Filed Vital Signs Vital Sign Reading Time Taken Comments Blood Pressure 126/74 11/10/2024 9:51 AM EDT Pulse 78 11/10/2024 9:51 AM EDT Temperature - - Respiratory Rate - - Oxygen Saturation 98% 11/10/2024 9:51 AM EDT Inhaled Oxygen Concentration - - Weight 127.5 kg (281 lb) 11/10/2024 9:51 AM EDT Height 171.5 cm (5' 7.52 ) 11/10/2024 9:51 AM ED T Body Mass Index 43.34 11/10/2024 9:51 AM EDT Plan of Treatment Upcoming Encounters Date Type Department Care Team (Late st Contact Info) Description 04/20/2025 10:00 AM EST Office Visit [facility] [address] [place] [address] Brinda Erickson MD [address] [place] [phone] [email or web address] Health Maintenance Due Date Last Done Comments Adult Td,Tdap Booster 1977 LIPID PANEL 1977 POTASSIUM LEVEL 1977 DEPRESSION SCREENING 1989 HEPATITIS C SCREENING 1995 HIV ONE-TIME SCREENING (18-6 5 YEARS) 1995 PAP SMEAR 1998 SCREENING FOR DIABETES 2012 COLOGUARD 2022 COLONOSCOPY 2022 COLORECTAL CANCER SCREENING 2022 FIT TEST 2022 FOBT 2022 SIGMOIDOSCOPY 2022 VIRTUAL COLONOSCOPY 2022 INFLUENZA VACCINE (#1) 2024 COVID-19 VACCINE ( - 2024-2 6 season) 2025 CREATININE LEVEL 03/27/2025 03/27/2024 TSH LEVEL 11/06/2025 11/06/2024, 03/27/2024, 10/25/2022 MAMMOGRAM 09/18/2026 09/18/2024, 09/18/2024 SMOKING STATUS SCREENING (On ce After 26 Yrs) Completed 11/10/2024 HEPATITIS A VACCINES Aged Out No long er eligible based on patient's age to complete this topic HIB VACCINES Aged Out No longer eligi ble based on patient's age to complete this topic MENINGOCOCCAL VACCINES (ACWY) Aged Out No longer eligible based on patient's age to complete this topic MENINGOCOCCAL VACCINES (B) Aged Out N o longer eligible based on patient's age to complete this topic PNEUMOCOCCAL VACCINES (0-49 years) Aged Out No longer eligible b ased on patient's age to complete this topic Medical Devices Not on file Procedures Procedure Name Priority Date/Time Associated Diagnosis Comments TSH WITH REFLEX Routine 11/06/2024 10:02 AM EDT Acquired hypothyroidism COMPREHENSIVE METABOLIC PANEL Routine 03/27/2024 3:17 PM EDT History of gestational diabetes from Last 3 Months or Most Recently Relevant to Health Maintenance Results * TSH with reflex (11/06/2024 10:02 AM EDT) Blood us Brinda Erickson MD LAB BLOOD ORDERABLES Final Res ult Performing Organization Address [facility] Co de Phone Number [address] [phone] * Comprehensive metabolic panel (03/27/2024 3:17 PM EDT) Blood us Brinda Erickson MD LAB BLOOD ORDERABLES Final Res ult Performing Organization Address [facility] Co de Phone Number [address] [phone] from Last 3 Months or Most Recently Relevant to Health Maintenance Insurance [employer] ACO ACO ACO Member Subscriber Plan / Payer (Ef fective 2022-Present) Name:Laina Guzmán Relation to Subscriber:Self Name:Laina Guzmán Payer ID:Not on file Type:Medicaid Address: [address] [place] [place] [id number] [facility] [employer] Care Teams Sander Operator Relationship Specialty Start Date End Date Troy Nicolas MD [address] [place] [phone] PCP - General Internal Medicine 10/19/22 Additional Source Comments The information contained in this document represents components of the legal health record. It is not the complete legal health record.[facility]
--- OUTSIDE RECORDS SUMMARY | 2025-03-18 10:40 | XMS_ITS | Data Portability ---
Author Organization [place] - [facility], Allergy Address [address] [address] Care Team Providers Care Kiln Repairer Name Role Phone TWILA CARTER Primary Care Provider [phone] Assessment No assessment recorded. Plan of Treatment Reminders Order Date Submit Date Provider Last Modified By Organization Details Last Modified Time Details Appointments Hearing Test 2024 09:30A M Hearing Test Not available Not available Not available Establish ed 15 2024 10:00A M GINETTE ALMEIDA MD Not available Not available Not available Lab None recorded. Referral None recorded. Procedures None recorded. Surgeries None recorded. Imaging None recorded. Medication Orders None recorded. Patient TargetsNo targets recorded. Patient InstructionsNo instructions recorded. Reason for Referral None Reported. 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 Active 2022 Other specified disorders of temporoma ndibular joint; Note: Date Diagnosed : 11/07/2022 10:48 AM (M26.69) Not Available [facility] 4 03:29:03 Acute sialoaden itis 551594656 Active 2024 GINETTE ALMEIDA MD 100 [facility], [place], [address] , [facility] - [facility] 5 14:40:29 Abnormal auditory perceptio n 12976581 Active 2024 GINETTE ALMEIDA MD 100 [facility], [place], [address] , [facility] 5 14:40:35 Problem Notes None recorded. Medical Equipment None Reported. Allergies Allergen ID Allergen Name Allergen Category Reaction Reaction Severity Criticality Documentation Date Start Date Code Code System Note Provider Name and Address Organization Details Recorded Time 264500 latex environme nt,medica tion other Not available Not available 10/08/2023 43802 91 RxNorm React ion: Unkno wn; Not Available [facility] 4 01:19:58 371717 aspirin medicatio n other Not available Not available 10/08/2023 1191 RxNorm React ion: Unkno wn; Not Available [facility] 4 01:19:58 521909 Product containin g penicilli n (product) medicatio n other Not available Not available 10/08/2023 84068 8001 SNOMED React ion: Unkno wn; Not Available [facility] 4 01:20:00 Medications Name Sig Start Date Stop Date Status Note LastModified by Organization Details LastModified Time sucralfat e 100 mg/mL oral suspensio n take 2 teaspoon fuls -10ml- BY MOUTH THREE TIMES DAILY BEFORE MEALS AND bedtime 02/01 completed Not Available Not Available Not Available valsartan 80 mg tablet TAKE 1 TABLET BY MOUTH DAILY AT BEDTIME active Not Available Not Available No t Available chlorthal idone 25 mg tablet TAKE 1/2 tablet BY MOUTH DAILY. IF unable TO split MAY TAKE 1 TAB every other DAY 02/01 completed Not Available Not Available Not Available erythromy brynn 5 mg/gram (0.5 %) eye ointment Apply a small amount on eyelid three times a day 02/01 completed Not Available Not Available Not Available levothyro xine 125 mcg tablet Take 1 tablet (125 mcg total) by mouth every morning. active Not Available Not Available No t Available nystatin 100,000 unit/gram topical cream Apply to affected area daily as needed. active Not Available Not Available No t Available losartan 25 mg tablet TAKE 1 TABLET BY MOUTH DAILY 02/01 completed Not Available Not Available Not Available nystatin 100,000 unit/gram topical powder Apply 1 gram to affected area three times per day as needed. active Not Available Not Available No t Available epinephri ne 0.3 mg/0.3 mL injection , auto-inje ctor INJECT 1 PEN INTO MUSCLE NEEDED FOR ANAPHYLA XIS REACTION call 911 active Not Available Not Available No t Available losartan 100 mg tablet TAKE 1 TABLET BY MOUTH DAILY 02/01 completed Not Available Not Available Not Available fluticaso ne propionat e 50 mcg/actua tion nasal spray,[employer] instill 2 SPRAYS into BOTH nostrils DAILY. shake WELL BEFORE using active Not Available Not Available No t Available doxycycli ne hyclate 100 mg tablet TAKE 1 TABLET BY MOUTH TWICE DAILY FOR 10 DAYS 02/01 completed Not Available Not Available Not Available levothyro xine 112 mcg tablet take 1 tablet By Mouth Daily 02/01 completed Not Available Not Available Not Available Ventolin HFA 90 mcg/actua tion aerosol inhaler inhale 2 PUFFS BY MOUTH every 4 hours NEEDED FOR WHEEZING OR SHORTNES S OF BREATH active Not Available Not Available No t Available Symbicort 160 mcg-4.5 mcg/actua tion HFA aerosol inhaler inhale 2 PUFFS BY MOUTH TWICE DAILY active Not Available Not Available No t Available albuterol sulfate 90 mcg/actua tion breath activated powder inhaler active Medicati on ID: [id number] B rand Name: albutero l sulfate Send Method: E-Prescr ibed Sub s Allowed: subs OK Medic ationGen ericName : albutero l sulfate Not Available Not Available Not Available Readi-Cat 2 2 % (w/v) oral suspensio n drink by MOUTH as directed per radiolog y protocol 02/01 completed Not Available Not Available Not Available Vitals Date Recorded Body height Body mass index (BMI) Body weight Provider Name and Address Organization Details Last Updated DateTime 02/01/2025 175.26 cm 39.1 kg/m2 521426.98 g Wanda Edgar [place] - [facility] 02/01/2025 11:07:21 Social History None recorded. Functional Status None recorded. Mental Status None recorded. Family History Nothing Reported. Medical History No medical history recorded. Gynecological HistoryNo gynecological history recorded. Obstetrics History GPAL:G 0 P 0 0 0 0 Past Encounters Encounter ID Performer Location Encounter Start Date Encounter Closed Date Diagnosis/Indication Diagnosis SNOMED-CT Code Diagnosis ICD10 Code Diagnosis IMO Codes Diagnosis Note [id number] GINETTE ALMEIDA MD [facility] [address] [place] [address] 02/01/2025 10:53:22 02/01/2025 11:29:03 Acute sialoadenitis 523115657 K11.21 [id number] Descriptio n of previous symptoms seems consistent with sialoadeni tis. She has some very mild tenderness to palpation over the tail of the left parotid, but no swelling on exam. Clear saliva is noted from bilateral Delta's and Stensen's duct papillae. No palpable stones. Continue salivary gland precaution s and hydration. Abnormal a uditory perception 29177734 H93.292 [id number] Previously seen for chronic otalgia with normal FOL, thought to be related to TMJ. Recommende d audiogram at that time which did not get scheduled, so we will schedule that for the near future. Health Concerns Section Related Observation LastModified by Organization Detai ls LastModified Time None Recorded Concern Status LastModified by Organization Details LastModified Time None Recorded Advance Directives Directive None Recorded Payers Insurance Date Sequence Insurance Name Policy Number Policy Aguiar Covered Member ID Aguiar Member ID Guarantor Name 01/29/2025 1 [facility] (MEDICAID HMO) [id number] Laina Guzmán [id number] Laina Guzmán Notes Date Note Type Note Provider Name and Address Organization Details Recorded Time 02/01/2025 text/html When saw director information, had some swelling over the left parotid. Was having some soreness in the ear and gland. Thought may have been passing the stone. No pain, but it bothers a little. Ear a little blocked. Drinks lots of fluid. Stopped chlorthalidone over the summer, now on valsartan. Asthma controlled. Sinuses inflamed a couple weeks ago. Using flonase and zyrtec. GINETTE ALMEIDA MD [address] [place] [address], [place], [address], [place] - [facility] 02/01/2025 14:42:38 OBGyn Episode No OBEpisode recorded.
[2025-03-23 21:53] VITALS: BMI 43.2
== END 2025-03-18 09:58 | disposition home or self-care (01) ==
LOC: HO.ENCR 09:29
PROVIDERS: PCP Internal Medicine; Visit Provider Dietitian, Registered
DX: E66.9 Obesity, unspecified (principal)

== ENCOUNTER → 2025-03-18 09:29 | Outpatient (BNVA) | payer OTHER, SELFPAY | PROVIDERS: PCP Internal Medicine; Visit Provider Dietitian, Registered | DX: E66.9 Obesity, unspecified (principal) | CPT/HCPCS: 97803 ==